=== PATIENT | female | born 1985 | race Caucasian/White ===

== ENCOUNTER → 2025-01-26 | Outpatient (REF) | payer OTHER | LOC: M SFHCRHEU 15:09 | PROVIDERS: ATTEND Internal Medicine | DX: M25.50 Pain in unspecified joint (principal); M54.9 Dorsalgia, unspecified ==

== ENCOUNTER → 2025-08-03 | Outpatient (CLI) | payer OTHER | LOC: M PLAIMG 10:51 | PROVIDERS: ATTEND Internal Medicine | DX: M79.641 Pain in right hand (principal) ==